=== PATIENT | female | born 1995 | race African-American/Black ===

== ENCOUNTER 2021-02-09 12:51 | Emergency (ER) | payer OTHER ==
[~2021-02-09] VITALS: Ht 157.5 cm; Wt 122.5 kg
[2021-02-09 13:05] VITALS: BP 158/74
[2021-02-09] MEDS ORDERED: METFORMIN HCL500 M3 PO (13:13)
== END 2021-02-09 14:13 | disposition left against medical advice (07) ==
LOC: ER 12:51
DX: L02.91 Cutaneous abscess, unspecified (principal); Z53.21 Procedure and treatment not carried out due to patient leaving prior to being seen by health care provider